=== PATIENT | male | born 1965 | race Caucasian/White ===

== ENCOUNTER 2024-04-24 09:00 | Outpatient (CLI) | payer BC, SELFPAY | END 2024-04-24 09:01 | disposition home or self-care (01) | PROVIDERS: PCP Family Medicine; Visit Provider Family Medicine | DX: Z00.00 Encounter for general adult medical examination without abnormal findings (principal); Z12.5 Encounter for screening for malignant neoplasm of prostate; Z13.6 Encounter for screening for cardiovascular disorders; Z13.9 Encounter for screening, unspecified | CPT/HCPCS: 80048; 80061; 84460; G0103 ==

== ENCOUNTER 2024-05-12 11:04 | Outpatient (CLI) | payer BC, SELFPAY ==
--- NOTE | 2024-05-12 12:24 | W.ANESCHARGE ---
Anesthesia Charges Start Date/Time Anesthesia Start Date: 05/12/24 Anesthesia Start Time: 12:03 Stop Date/Time Anesthesia Stop Date: 05/12/24 Anesthesia Stop Time: 12:22
--- NOTE | 2024-05-12 12:38 | W.ANESCHARGE ---
Anesthesia Charges Start Date/Time Anesthesia Start Date: 05/12/24 Anesthesia Start Time: 12:03 Stop Date/Time Anesthesia Stop Date: 05/12/24 Anesthesia Stop Time: 12:22
== END 2024-05-12 11:05 | disposition home or self-care (01) ==
LOC: OP CLINIC 11:04
PROVIDERS: PCP Family Medicine; Visit Provider Internal Medicine
DX: Z12.11 Encounter for screening for malignant neoplasm of colon (principal); K57.30 Diverticulosis of large intestine without perforation or abscess without bleeding; Z86.0100 Personal history of colon polyps, unspecified
CPT/HCPCS: 00812; 45378; J2704

== ENCOUNTER 2024-06-10 06:21 | Day surgery (SDC) | payer BC, SELFPAY ==
[2024-06-10 06:40] VITALS: BMI 36.6
[2024-06-10 06:50] VITALS: BP 129/83; PULSE 70; RESP 16; TEMP 36.6; O2SAT 97
[2024-06-10] MEDS: 0.9 % SODIUM CHLORIDE 500 ML 500 ML 100 ML IV (06:50)
[2024-06-10] MEDS: SODIUM CHLORIDE 0.9 % (FLUSH) 10 ML SYRINGE IVF (06:50)
[2024-06-10] MEDS: CEFAZOLIN 2 GM INJ IVP (07:25)
--- NOTE | 2024-06-10 07:26 | W.PM.H&PU ---
History & Physical Update History & Physical Update H&P Reviewed and patient assessed: No changes noted
--- NOTE | 2024-06-10 08:09 | W.ANESCHARGE ---
Anesthesia Charges Start Date/Time Anesthesia Start Date: 06/10/24 Anesthesia Start Time: 07:21 Stop Date/Time Anesthesia Stop Date: 06/10/24 Anesthesia Stop Time: 08:35
--- NOTE | 2024-06-10 08:12 | PM.GSPRC ---
Operative Note Date of procedure: 06/10/24 Pre-op diagnosis: Upper back lipoma Post-op diagnosis: Same Type of Procedure: Excision of upper back lipoma Indications: Patient is a 59-year-old male who presented to clinic with a large subcutaneous mass of the upper back. Clinical features and history was consistent with lipoma. Different treatment options were reviewed including continued observation versus excision in the operating room given the size and location. Risks and benefits of the procedure were discussed at length the patient. Risks included, but were not limited to: Bleeding, infection, risk of damage to surrounding structures and possible need for additional procedures. All questions and concerns were addressed with patient agreeing to proceed. Procedure Description: After discussing the risks and benefits of the procedure, the patient signed informed consent.? The operative site was marked and the patient was brought to the operating room and placed on the operating table in supine position.? Care was taken to pad the patient's pressure points.?? The patient was then given sedation by anesthesia.?? Patient was repositioned lateral decubitus with left side up. The operative site was then prepped and draped in the usual sterile fashion.? A time-out was then performed. Local anesthetic was used to anesthetize the area. A vertical incision was made in the middle of the back directly over the subcutaneous mass. Dissection was carried down through subcutaneous tissue with electrocautery. A welling capsulated, firm fatty mass was encountered. This was circumferentially dissected free. A small amount of arterial bleeding on the superior aspect was cauterized. The mass was adherent to the muscle fascia, but did not invade the muscle. This was carefully dissected off with cautery. The mass was then removed in its entirety. It measured 9 x 7.5 x 3 cm in size. The resulting cavity was irrigated with warm saline. Hemostasis was assured with electrocautery. Additional local anesthetic was placed. The incision measured 8 cm and was closed in layers with deep interrupted 2 0 Vicryl, interrupted 3-0 Vicryl and running 4-0 Monocryl subcuticular stitch. Sterile dressings were applied. ? The patient was then woken and transported to the recovery area in stable condition. ? The patient tolerated the procedure well. Findings: 9 x 7.5 x 3 cm upper back lipoma Anesthesia: MAC and local Surgeon: Celestina Templeton MD Estimated blood loss (mL): 25 Additional Specimen Information: Upper back lipoma Condition: stable Disposition: same day
[2024-06-10 08:32] VITALS: BP 110/68; PULSE 68; RESP 14; TEMP 36.7; O2SAT 97
--- NOTE | 2024-06-10 08:39 | W.ANESCHARGE ---
Anesthesia Charges Start Date/Time Anesthesia Start Date: 06/10/24 Anesthesia Start Time: 07:21 Stop Date/Time Anesthesia Stop Date: 06/10/24 Anesthesia Stop Time: 08:35
[2024-06-10 08:45] VITALS: BP 114/80; PULSE 63; RESP 14; O2SAT 97
[2024-06-10 09:00] VITALS: BP 117/81; PULSE 66; RESP 16; O2SAT 98
[2024-06-10 09:15] VITALS: BP 118/81; PULSE 67; RESP 16; O2SAT 97
== END 2024-06-10 09:50 | disposition home or self-care (01) ==
PROVIDERS: PCP Family Medicine; Visit Provider Surgery
PROC: (CPT 21931; principal; 2024-06-10 07:15)
DX: D17.1 Benign lipomatous neoplasm of skin and subcutaneous tissue of trunk (principal)
CPT/HCPCS: 21931; 00300; 88305; J0690; J1100; J1885; J2405; J2704; J3010; J3490; J7030